=== PATIENT | male | born 1940 | race Caucasian/White ===

== ENCOUNTER 2019-04-28 11:44 | Inpatient (IN) | payer MEDICARE, OTHER ==
[~2019-04-28] VITALS: Ht 182.8 cm; Wt 96.7 kg
[~2019-04-28 11:44] MED LIST: ASPIR 8181 MG; CRESTOR10 MG; LISINOPRIL20 MG PO; NEXIUM40 MG
[2019-04-28 12:38] LABS: HEMATOCRIT 41.1 % (42.0-52.0); HEMOGLOBIN 13.3 g/dl (14.0-18.0); MEAN CELL VOLUME 90.9 fl (80.0-94.0); MEAN CORPUSCULAR HGB 29.4 pg (27.0-31.0); MEAN CORPUSCULAR HGB CONC 32.4 g/dl (33.0-37.0); MEAN PLATELET VOLUME 11.2 fl (9.6-12.3); PLATELET COUNT AUTOMATED 269 10*3/uL (130-400); RED BLOOD COUNT 4.52 10*6/uL (4.50-5.90); WHITE BLOOD COUNT 23.9 10*3/uL (4.8-10.8)
[2019-04-28 12:47] LABS: ACT PARTIAL THROMBO TIME 28.6 SECONDS (20.0-32.1)
[2019-04-28 12:52] LABS: ALBUMIN 3.5 gm/dl (3.1-4.5); ALKALINE PHOSPHATASE 64 U/L (45-117); BUN 13 mg/dl (7-24); CHLORIDE 109 mmol/L (98-107); CREATININE 0.91 mg/dL (0.70-1.30); POTASSIUM 3.9 mmol/L (3.5-5.1); SGOT/AST 11 IU/L (3-35); SGPT/ALT 19 U/L (12-78); SODIUM 139 mmol/L (136-145); TOTAL PROTEIN 7.9 gm/dL (6.4-8.2)
[2019-04-28 12:54] LABS: TROPONIN I < 0.015 ng/ml (<0.045)
[2019-04-28 13:00] LABS: ATYPICAL LYMPHS 5 % (0-0); PLATELET SUFFICIENCY NORMAL (NORMAL); TOTAL CELLS COUNTED 100 #CELLS
[2019-04-28 13:01] LABS: BURR CELLS FEW
[2019-04-28 14:43] VITALS: BP 121/74
[2019-04-28] MEDS ORDERED: OMEPRAZOLE40 MG PO (15:27)
[2019-04-28] MEDS ORDERED: PRAVASTATIN SOD40 MG PO (15:28)
[2019-04-28] MEDS ORDERED: DICLOFENAC SOD100 G1 T (15:28)
[2019-04-28 16:30] VITALS: BP 122/68
[2019-04-28 16:48] VITALS: BP 122/68
[2019-04-28] MEDS ORDERED: MULTI-VITAMIN1 EACH PO (17:19)
[2019-04-28] MEDS ORDERED: MOTRIN IB200 M2 PO (17:20)
[2019-04-28 20:00] VITALS: BP 107/73
[2019-04-29] VITALS: BP 93/54
[2019-04-29 05:55] LABS: ALBUMIN 3.1 gm/dl (3.1-4.5); BUN 16 mg/dl (7-24); CHLORIDE 109 mmol/L (98-107); CHOLESTEROL 121 mg/dL (<200); HDL CHOLESTEROL 30 mg/dl (40-60); LDL CHOLESTEROL 75 mg/dL (9-159); PHOSPHOROUS 3.1 mg/dL (2.5-4.9); SGOT/AST 10 IU/L (3-35); SGPT/ALT 16 U/L (12-78); SODIUM 139 mmol/L (136-145); TOTAL PROTEIN 6.8 gm/dL (6.4-8.2); TRIGLYCERIDES 80 mg/dl (<150); VLDL CHOLESTEROL 16 mg/dL (6-40)
[2019-04-29 06:02] LABS: ALKALINE PHOSPHATASE 56 U/L (45-117); THYROID STIM HORMONE (HS) 0.794 uIU/ml (0.358-4.75)
[2019-04-29 06:04] LABS: HEMATOCRIT 38.8 % (42.0-52.0); HEMOGLOBIN 12.4 g/dl (14.0-18.0); MEAN CELL VOLUME 89.8 fl (80.0-94.0); MEAN CORPUSCULAR HGB 28.7 pg (27.0-31.0); MEAN PLATELET VOLUME 11.6 fl (9.6-12.3); PLATELET COUNT AUTOMATED 261 10*3/uL (130-400); RED BLOOD COUNT 4.32 10*6/uL (4.50-5.90); RED CELL DISTRI WIDTH 13.9 % (0-14.5); WHITE BLOOD COUNT 27.3 10*3/uL (4.8-10.8)
[2019-04-29 06:38] LABS: ATYPICAL LYMPHS 12 % (0-0); TOTAL CELLS COUNTED 100 #CELLS
[2019-04-29 06:39] LABS: PLATELET SUFFICIENCY NORMAL (NORMAL); POLYCHROMASIA SLIGHT
[2019-04-29 08:00] VITALS: BP 110/70
[2019-04-29 12:00] VITALS: BP 106/65
[2019-04-29 16:00] VITALS: BP 115/65
[2019-04-29 20:00] VITALS: BP 110/69
[2019-04-30] VITALS: BP 105/67
[2019-04-30 08:50] VITALS: BP 113/70
[2019-04-30] MEDS ORDERED: AVPAK AZITHROM250 MG PO (10:43)
[2019-04-30] MEDS ORDERED: HYDROXYCHLOROQ200 M1 PO (10:43)
== END 2019-04-30 11:46 | disposition home or self-care (01) | DRG 206 ==
LOC: ED 11:44 → EDHOLD 15:06 → 5E 15:06
PROVIDERS: Internal Medicine; Student in an Organized Health Care Education/Training Program; ADMIT Emergency Medicine
DX: J98.8 Other specified respiratory disorders (principal); E44.1 Mild protein-calorie malnutrition; C95.90 Leukemia, unspecified not having achieved remission; D64.9 Anemia, unspecified; E87.8 Other disorders of electrolyte and fluid balance, not elsewhere classified; E83.41 Hypermagnesemia; R79.82 Elevated C-reactive protein (CRP); E66.3 Overweight; I71.2 Thoracic aortic aneurysm, without rupture; M47.814 Spondylosis without myelopathy or radiculopathy, thoracic region; R68.89 Other general symptoms and signs; I71.9 Aortic aneurysm of unspecified site, without rupture; R91.8 Other nonspecific abnormal finding of lung field; I10 Essential (primary) hypertension; K21.9 Gastro-esophageal reflux disease without esophagitis; E78.5 Hyperlipidemia, unspecified; J40 Bronchitis, not specified as acute or chronic; Z88.0 Allergy status to penicillin; Z79.82 Long term (current) use of aspirin; Z79.899 Other long term (current) drug therapy; Z80.6 Family history of leukemia; Z68.28 Body mass index [BMI] 28.0-28.9, adult

== ENCOUNTER 2022-10-27 18:05 | Emergency (ER) | payer MEDICARE, OTHER ==
[~2022-10-27] VITALS: Ht 182.8 cm; Wt 90.7 kg
[~2022-10-27 18:05] MED LIST changes: +AVPAK AZITHROM250 MG PO; +DICLOFENAC SOD100 G1 T; +HYDROXYCHLOROQ200 M1 PO; +MOTRIN IB200 M2 PO; +MULTI-VITAMIN1 EACH PO; +OMEPRAZOLE40 MG PO; +PRAVASTATIN SOD40 MG PO
[2022-10-27] MEDS ORDERED: WARFARIN SODIU2.5 MG PO (18:20)
[2022-10-27] MEDS ORDERED: LISINOPRIL2.5 MG PO (18:20)
[2022-10-27] MEDS ORDERED: WARFARIN SODIUM10 MG PO (18:21)
[2022-10-27] MEDS ORDERED: Coumadin2.5 MG PO (18:23)
[2022-10-27 18:29] LABS: HEMATOCRIT 44.2 % (42.0-52.0); MEAN CELL VOLUME 90.4 fl (80.0-94.0); MEAN CORPUSCULAR HGB 28.8 pg (27.0-31.0); MEAN CORPUSCULAR HGB CONC 31.9 g/dl (33.0-37.0); MEAN PLATELET VOLUME 11.1 fl (9.6-12.3); PLATELET COUNT AUTOMATED 187 10*3/uL (130-400); RED BLOOD COUNT 4.89 10*6/uL (4.50-5.90); WHITE BLOOD COUNT 35.6 10*3/uL (4.8-10.8)
[2022-10-27 18:36] LABS: MANUAL DIFF REFLEX YES
[2022-10-27 18:39] LABS: ACT PARTIAL THROMBO TIME 29.8 SECONDS (20.0-32.1); INTERNATIONAL NORM RATIO 1.9 (2.0-3.5)
[2022-10-27 18:46] LABS: LIPASE 58 U/L (12-53)
[2022-10-27 18:50] LABS: ALKALINE PHOSPHATASE 68 U/L (46-116); BUN 14 mg/dl (9-23); CHLORIDE 109 mmol/L (98-107); POTASSIUM 4.2 mmol/L (3.4-5.1); SGPT/ALT 15 U/L (10-49); TOTAL PROTEIN 7.4 gm/dL (6.0-8.0)
[2022-10-27 19:10] LABS: ATYPICAL LYMPHS 2 % (0-0); TOTAL CELLS COUNTED 100 #CELLS
[2022-10-27 19:11] LABS: BURR CELLS FEW; OVALOCYTES FEW; PLATELET SUFFICIENCY NORMAL (NORMAL)
[2022-10-27 19:14] LABS: TOXIC GRANULATION SLIGHT
[2022-10-27 22:32] LABS: BILIRUBIN Negative (Negative); BLOOD 2+ (Negative); CLARITY Clear (Clear); COLOR Dark Yellow (Yellow); GLUCOSE 1+ (Negative); KETONE Trace (Negative); LEUKO ESTERASE Negative (Negative); NITRITE Negative (Negative)
[2022-10-27 22:47] LABS: BACTERIA TRACE; WBC 0-2 wbc/hpf (0-5)
== END 2022-10-28 02:45 | disposition short-term general hospital (02) ==
LOC: ED 18:05
PROVIDERS: Emergency Medicine; Internal Medicine
DX: K92.2 Gastrointestinal hemorrhage, unspecified (principal); R11.0 Nausea; I10 Essential (primary) hypertension; Z88.0 Allergy status to penicillin; Z98.890 Other specified postprocedural states